=== PATIENT | female | born 1940 | race Caucasian/White ===

== ENCOUNTER 2020-03-17 13:36 | Observation (INO) ==
[2020-03-17 14:37] LABS: Basophils % 0.6 %; Eosinophils # 0.3 K/mcL (0.0-0.6); Eosinophils % 7.7 %; Hematocrit 28.9 % (35.3-44.9); Hemoglobin 9.8 g/dL (11.5-15.4); Immature Granulocytes % 0.3 % (0-4); Lymphocytes # 0.5 K/mcL (0.6-4.6); Lymphocytes % 13.5 %; Mean Corpuscular HGB Conc 33.9 g/dL (31.6-35.5); Mean Corpuscular Hemoglobin 30.7 pg (28.0-33.3); Mean Corpuscular Volume 90.6 fL (83.0-100.0); Mean Platelet Volume 10.2 fL (9.4-12.4); Monocytes # 0.4 K/mcL (0.0-1.3); Monocytes % 12.6 %; Neutrophils # 2.3 K/mcL (1.6-8.9); Platelet Count 130 K/mcL (140-400); Red Blood Count 3.19 M/mcL (3.82-4.97); Red Cell Distribution Width 12.7 % (11.5-14.5); Segmented Neutrophils % 65.3 %; White Blood Count 3.5 K/mcL (4.3-11.1)
[2020-03-17 15:03] LABS: BUN/Creatinine Ratio 20 (6-26); Blood Urea Nitrogen 34 mg/dL (8-23); Calcium 8.9 mg/dL (8.6-10.3); Carbon Dioxide 25 mEq/L (23-29); Chloride 107 mEq/L (98-107); Glucose 122 mg/dL (70-105); Osmolality,Calculated 295 (280-300); Potassium 3.9 mEq/L (3.5-5.1); Sodium 138 mEq/L (136-145); Troponin I < 0.03 ng/mL (< 0.04); eGFR For African Americans 36 (> 60); eGFR For Non-African Americans 29 (> 60)
[2020-03-17] MEDS ORDERED: Naloxone 0.4 MG/ML INJ IVP PRN (17:41)
[2020-03-17] MEDS: Albuterol 2.5 MG/3 ML NEBULIZER IH SCH ×2 (20:19→23:49)
[2020-03-18] MEDS ORDERED: *HR* Promethazine 25 MG/ML VIAL IVP ONE (02:30)
[2020-03-18] MEDS: Albuterol 2.5 MG/3 ML NEBULIZER IH SCH ×4 (04:17→15:46)
[2020-03-18 04:44] LABS: Basophils % 0.2 %; Eosinophils # 0.3 K/mcL (0.0-0.6); Eosinophils % 4.8 %; Hematocrit 32.5 % (35.3-44.9); Hemoglobin 10.8 g/dL (11.5-15.4); Immature Granulocytes % 0.2 % (0-4); Lymphocytes # 0.5 K/mcL (0.6-4.6); Lymphocytes % 10.1 %; Mean Corpuscular HGB Conc 33.2 g/dL (31.6-35.5); Mean Corpuscular Hemoglobin 30.4 pg (28.0-33.3); Mean Corpuscular Volume 91.5 fL (83.0-100.0); Mean Platelet Volume 10.8 fL (9.4-12.4); Monocytes # 0.5 K/mcL (0.0-1.3); Monocytes % 8.8 %; Nucleated Red Blood Cells 0.4 /100 WBC (0); Platelet Count 154 K/mcL (140-400); Red Blood Count 3.55 M/mcL (3.82-4.97); Red Cell Distribution Width 12.6 % (11.5-14.5); Segmented Neutrophils % 75.9 %
[2020-03-18 04:45] LABS: White Blood Count 5.2 K/mcL (4.3-11.1)
[2020-03-18 05:03] LABS: Calcium 9.1 mg/dL (8.6-10.3); Potassium 3.3 mEq/L (3.5-5.1)
[2020-03-18 06:45] VITALS: BP 132/54
[2020-03-18] MEDS ORDERED: carvediloL 6.25 MG TABLET PO SCH (08:00)
[2020-03-18] MEDS ORDERED: Potassium Chloride Elixir 20 MEQ/15 ML UDC PO ONE (08:47)
[2020-03-18] MEDS ORDERED: Aspirin Enteric Coated 81 MG Tablet PO SCH (09:00)
[2020-03-18] MEDS ORDERED: Loratadine 10 MG TABLET PO SCH (09:00)
[2020-03-18] MEDS ORDERED: Fluticasone Propionate Nasal 50 MCG/SPRAY BOTTLE NS SCH (09:00)
[2020-03-18] MEDS ORDERED: Tiotropium 18 MCG inhalation IH SCH (10:00)
[2020-03-18] MEDS ORDERED: Budesonide/Formoterol 160/4.5 1 PUFF INH IH SCH (10:00)
[2020-03-18] MEDS ORDERED: Regadenoson 0.4 MG/5 ML SYRINGE IVP ONE (11:49)
== END 2020-03-18 16:10 | disposition home or self-care (01) ==
LOC: 3BNU 13:36 → EMEROOARM 13:36 → SUATTDRO 17:40 → 3BNU 18:42
PROVIDERS: ADMIT Internal Medicine; ATTEND Internal Medicine

== ENCOUNTER 2020-12-02 14:38 | Observation (INO) ==
[2020-12-02 15:09] LABS: Basophils % 0.4 %; Eosinophils % 0.2 %; Hematocrit 33.7 % (35.3-44.9); Hemoglobin 11.6 g/dL (11.5-15.4); Immature Granulocytes % 0.4 % (0-4); Lymphocytes # 0.6 K/mcL (0.6-4.6); Lymphocytes % 10.3 %; Mean Corpuscular HGB Conc 34.4 g/dL (31.6-35.5); Mean Corpuscular Volume 90.1 fL (83.0-100.0); Mean Platelet Volume 11.1 fL (9.4-12.4); Monocytes # 0.4 K/mcL (0.0-1.3); Monocytes % 7.5 %; Neutrophils # 4.6 K/mcL (1.6-8.9); Platelet Count 154 K/mcL (140-400); Red Blood Count 3.74 M/mcL (3.82-4.97); Red Cell Distribution Width 12.8 % (11.5-14.5); Segmented Neutrophils % 81.2 %; White Blood Count 5.7 K/mcL (4.3-11.1)
[2020-12-02] MEDS ORDERED: Isovue-370 500 ML BOTTLE IVP ONE (15:15)
[2020-12-02 15:21] LABS: Albumin 4.4 g/dL (3.5-5.7); Albumin/Globulin Ratio 1.8 (1.1-2.2); Bilirubin,Direct 0.1 mg/dL (0.0-0.2); Bilirubin,Indirect 0.5 mg/dL (0.0-1.0); Bilirubin,Total 0.6 mg/dL (0.3-1.0); Globulin 2.5 g/dL (2.4-3.5); Potassium 3.6 mEq/L (3.5-5.1); Total Protein 6.9 g/dL (6.4-8.9)
[2020-12-02] MEDS ORDERED: 0.9 % Sodium Chloride 1,000 ML IVC ONE (15:45)
[2020-12-02 16:07] LABS: Bilirubin,Urine Negative (Negative); Blood,Urine Negative (Negative); Clarity,Urine Clear (Clear); Color,Urine Light-Yellow (Yellow); Glucose,Urine (UA) Normal (Normal); Ketones,Urine Negative (Negative); Leukocyte Esterase,Urine Negative (Negative); Nitrite,Urine Negative (Negative); PH,Urine 6.5 pH Units (5.0-8.0); Protein,Urine Trace mg/dL (Neg-Trace); Specific Gravity,Urine 1.011 (1.010-1.025); Urobilinogen,Urine Normal (Normal)
[2020-12-02] MEDS ORDERED: MetroNIDAZOLE 500 MG/100 ML 500 MG/100 ML BAG IVPB ONE (16:42)
[2020-12-02] MEDS ORDERED: Naloxone 0.4 MG/ML INJ IVP PRN (18:58)
[2020-12-02] MEDS ORDERED: polyethylene glycoL 3350 17 GM POWD.PACK PO PRN (19:01)
[2020-12-03] MEDS: 0.9 % Sodium Chloride 1,000 ML IVC SCH ×2 (03:30→05:04)
[2020-12-03 04:43] LABS: Calcium 8.8 mg/dL (8.6-10.3); Potassium 3.5 mEq/L (3.5-5.1)
[2020-12-03 06:02] LABS: Hematocrit 28.3 % (35.3-44.9); Hemoglobin 9.5 g/dL (11.5-15.4); Mean Corpuscular HGB Conc 33.6 g/dL (31.6-35.5); Mean Corpuscular Hemoglobin 30.3 pg (28.0-33.3); Mean Corpuscular Volume 90.1 fL (83.0-100.0); Mean Platelet Volume 10.9 fL (9.4-12.4); Platelet Count 145 K/mcL (140-400); Red Blood Count 3.14 M/mcL (3.82-4.97); Red Cell Distribution Width 13.1 % (11.5-14.5); White Blood Count 5.2 K/mcL (4.3-11.1)
[2020-12-03 10:15] VITALS: BP 130/64
[2020-12-03 10:24] LABS: Hematocrit 29.3 % (35.3-44.9); Hemoglobin 10.1 g/dL (11.5-15.4)
== END 2020-12-03 12:37 | disposition home or self-care (01) ==
LOC: 3ANU 14:38 → EMEROOARM 14:38 → 3ANU 19:53
PROVIDERS: ADMIT Internal Medicine; ATTEND Internal Medicine